=== PATIENT | female | born 1970 | race Hispanic/Latino ===

== ENCOUNTER → 2017-10-18 | Outpatient (CLI) | payer OTHER | END | disposition home or self-care (01) | LOC: RAH 09:44 | PROVIDERS: ATTEND Internal Medicine | DX: Z12.31 Encounter for screening mammogram for malignant neoplasm of breast (principal) | CPT/HCPCS: 77067 ==

== ENCOUNTER → 2019-08-17 | Outpatient (CLI) | payer OTHER | END | disposition home or self-care (01) | LOC: OIH 15:18 | PROVIDERS: ATTEND Internal Medicine | DX: M47.24 Other spondylosis with radiculopathy, thoracic region (principal); M25.78 Osteophyte, vertebrae | CPT/HCPCS: 71046; 72070 ==

== ENCOUNTER → 2022-06-28 | Outpatient (CLI) | payer OTHER | END | disposition home or self-care (01) | LOC: RAH 12:37 | PROVIDERS: ATTEND Internal Medicine | DX: M47.26 Other spondylosis with radiculopathy, lumbar region (principal); M25.551 Pain in right hip; M62.830 Muscle spasm of back; W19.XXXA Unspecified fall, initial encounter; Y93.89 Activity, other specified; Y92.89 Other specified places as the place of occurrence of the external cause; Y99.8 Other external cause status | CPT/HCPCS: 72100; 73502 ==

== ENCOUNTER → 2022-11-28 | Outpatient (CLI) | payer OTHER | END | disposition home or self-care (01) | LOC: RAH 10:26 | PROVIDERS: ATTEND Internal Medicine | DX: S89.92XA Unspecified injury of left lower leg, initial encounter (principal); M23.90 Unspecified internal derangement of unspecified knee; X58.XXXA Exposure to other specified factors, initial encounter; Y93.89 Activity, other specified; Y92.89 Other specified places as the place of occurrence of the external cause; Y99.8 Other external cause status | CPT/HCPCS: 73560 ==

== ENCOUNTER → 2024-07-22 | Outpatient (CLI) | payer OTHER ==
--- NOTE | 2024-07-22 11:53 | HMCIMG ---
Exam Type: KNEE/PATELLA 1-2VWS LT Clinical Information: LT KNEE PAIN, BURSITIS, INTERNAL DERANGEMENT OF KNEE Comparison: None Findings: The bone examination is unremarkable. No fractures or dislocations are seen. No radiopaque foreign bodies are noted. Soft tissues are preserved. IMPRESSION: Normal examination.
== END | disposition home or self-care (01) ==
LOC: RAH 10:31
PROVIDERS: ATTEND Internal Medicine
DX: M23.92 Unspecified internal derangement of left knee (principal); M25.562 Pain in left knee; M70.52 Other bursitis of knee, left knee
CPT/HCPCS: 73560